=== PATIENT | female | born 1950 ===

== ENCOUNTER 2021-10-28 07:44 | Outpatient (CLI) | payer OTHER | END 2021-10-28 14:19 | disposition home or self-care (01) | LOC: RAD 07:44 | PROVIDERS: ATTEND Internal Medicine Hepatology | DX: K56.690 Other partial intestinal obstruction (principal); R10.84 Generalized abdominal pain ==

== ENCOUNTER 2024-04-02 09:34 | Outpatient (CLI) | payer OTHER ==
[2024-04-04] MEDS ORDERED: ELIQUIS5 MG (13:36)
[2024-04-04] MEDS ORDERED: MILLIPRED5 MG (13:37)
[2024-04-04] MEDS ORDERED: TOPROL XL50 M1 (13:37)
[2024-04-04] MEDS ORDERED: [UNRECOGNIZED DRUG - OTHER] (13:38)
[2024-04-04] MEDS ORDERED: LANOXIN125 MCG (13:38)
[2024-04-04] MEDS ORDERED: SIMVASTATIN20 MG (13:39)
[2024-04-04] MEDS ORDERED: CANDESARTAN CILE8 MG (13:40)
[2024-04-04] MEDS ORDERED: ACIDO FOLICO (13:40)
[2024-04-04] MEDS ORDERED: SYNTHROID75 MCG (13:41)
== END 2024-04-02 09:37 | disposition home or self-care (01) ==
LOC: RAD 09:34
PROVIDERS: ATTEND Orthopaedic Surgery Hand Surgery
DX: Z01.810 Encounter for preprocedural cardiovascular examination (principal)

== ENCOUNTER 2024-04-12 05:05 | Day surgery (SDC) | payer OTHER ==
[~2024-04-12 05:05] MED LIST: ACIDO FOLICO; CANDESARTAN CILE8 MG; ELIQUIS5 MG; LANOXIN125 MCG; MILLIPRED5 MG; SIMVASTATIN20 MG; SYNTHROID75 MCG; TOPROL XL50 M1; [UNRECOGNIZED DRUG - OTHER]
[2024-04-12 07:35] LABS: INR 1.14; PROTHROMBIN TIME 12.3 SECONDS (9.0-11.5)
[2024-04-12] MEDS ORDERED: CEFAZOLIN SODIUM 1,000 MG in 0.9 % SODIUM CHLORIDE 50 ML IV ONE (15:00)
[2024-04-12] MEDS ORDERED: MORPHINE SULFATE 4 MG/ML VIAL IV ONE ×3 (15:55→17:10)
== END 2024-04-12 18:20 | disposition home or self-care (01) ==
LOC: CIR.AMB 05:05
PROVIDERS: ATTEND Orthopaedic Surgery Hand Surgery
DX: M65.842 Other synovitis and tenosynovitis, left hand (principal); M65.832 Other synovitis and tenosynovitis, left forearm